=== PATIENT | female | born 1950 | race Two or more races ===

== ENCOUNTER 2016-08-20 12:02 | Emergency (ER) | payer SELFPAY ==
[~2016-08-20] VITALS: Ht 157.5 cm; Wt 54.4 kg
[2016-08-20] MEDS ORDERED: FENTANYL PF 100 MCG/2 ML VIAL. IV PRN (12:30)
--- NOTE | 2016-08-20 12:33 | EKG ---
[facility] [address] [place] [address] Test Date: 2016-08-20 Test Time: 12:18:32 Pat Name: HAILE WARREN Department: Room: Gender: F Appraisal Manager: : 1950 Requested By: BOBO CORONA Order Number: [id number] Reading MD: Alice Garza Measurements Intervals [place] Rate: 79 P: 11 CO: 140 QRS: 26 QRSD: 74 T: 4 QT: 448 QTc: 515 Interpretive Statements SINUS RHYTHM T ABNORMALITY IN HIGH LATERAL LEADS INFERIOR LEADS PROLONGED QT ABNORMAL ECG RI6.01 No previous ECG available for comparison Electronically Signed On 08-24-2016 23:08:25 TREE INSPECTOR by Alice Garza
--- NOTE | 2016-08-20 13:07 | ED.ADGEN ---
Adult General Chief Complaint Chief Complaint: CHEST PAIN HPI HPI Patient is a 65 year old woman, with history of hypertension, hyperlipidemia, arthritis, who presents emergency department stating that she ran out of her medications 4 days ago, and has been experiencing headache since that time which she states is associated with when her pressure is high. Patient is primarily Syriac-speaking, and translation is obtained via the [employer] line skate boarder. Patient moved from [place] to [place] 3 months ago and plans on staying here permanently, she does not currently have a physician, and ran out of her medications, was previously taking them as directed. She states that she took a blood pressure pill from a friend had earlier today, at this point she states that she feels slightly tired but is denying any chest pain or shortness of breath, any blurry vision, any weakness emesis or tingling, and is complaining of a mild posterior headache. She states she's had these symptoms previously when her blood pressure is high. Patient's blood pressure currently is 148/78. Heart rate is 86. Initially denied any shortness of breath or chest pain, however during a lengthy conversation with the language line skate boarder, patient states that she had some chest tightness that occurred 2 days ago, lasting for a few moments without radiation or associated symptoms, and she states she does have some shortness of breath with activity at times. No chest pain currently. She is not previously had a cardiac evaluation. She does not currently have a primary care provider with whom she was planning to follow up. Patient states that she is primarily here because she ran out of her medications. Review of Systems Review of Systems Constitutional: Denies fever or chills. [] Eyes: Denies change in visual acuity. [] HENT: Denies nasal congestion or sore throat. [] Respiratory: No cough or shortness of breath. Cardiovascular: Chest tightness that lasted for a few moments 2 days ago. No edema. GI: Denies abdominal pain, nausea, vomiting, bloody stools or diarrhea. [] : Denies dysuria. [] Musculoskeletal: Denies back pain or joint pain. [] Integument: Denies rash. [] Neurologic: Denies focal weakness or sensory changes. Posterior headache, with bilateral blurry vision, currently no blurry vision, very mild headache. [ ] Endocrine: Denies polyuria or polydipsia. [] Lymphatic: Denies swollen glands. [] Psychiatric: Denies depression or anxiety. [] Current Medications Current Medications Current Medications Medications (Trade) Dose Ordered Sig/[place] Start Time Stop Time Status Last Admin Dose Admin Fentanyl Citrate (Fentanyl 2ml Vial) 25 mcg PRN Q15MIN PRN 08/20/16 12:30 08/20/16 14:22 DC Allergies Allergies Allergies Coded Allergies Type Severity Reaction Last Updated Verified No Known Drug Allergies 08/20/16 No Physical Exam Physical Exam Constitutional: Well developed, well nourished, no acute distress, non-toxic appearance. [] HENT: Normocephalic, atraumatic, bilateral external ears normal, oropharynx moist, no oral exudates, nose normal. [] Eyes: PERRLA, EOMI, conjunctiva normal, no discharge. [] Neck: Normal range of motion, no tenderness, supple, no stridor. [] Cardiovascular:Heart rate regular rhythm, no murmur , S1, S2, rubs gallops. [] Lungs & Thorax: Bilateral breath sounds clear to auscultation, no wheezing, rhonchi, rales. No chest tenderness or crepitus. [] Abdomen: Bowel sounds normal, soft, no tenderness, no masses, no pulsatile masses. [] Skin: Warm, dry, no erythema, no rash. [] Back: No tenderness, no CVA tenderness. [] Extremities: No tenderness, no cyanosis, no clubbing, ROM intact, no edema. Negative Homans sign. [] Neurologic: Alert and oriented X 3, normal motor function, normal sensory function, no focal deficits noted. [] Psychologic: Affect normal, judgement normal, mood normal. [] Current Patient Data Vital Signs Vital Signs Date Time Temp Pulse Resp B/P Pulse Ox O2 Delivery O2 Flow Rate FiO2 08/20/16 14:15 68 22 119/59 95 Room Air 08/20/16 12:30 97.6 97.6 Lab Values Laboratory Tests Test 08/20/16 13:00 08/20/16 13:10 Urine Collection Type Unknown Urine Color Yellow Urine Clarity Clear Urine pH 6.5 Urine Specific [place] <=1.005 Urine Protein Negativemg/dL (NEG-TRACE) Urine Glucose (UA) Negativemg/dL (NEG) Urine Ketones (Stick) Negativemg/dL (NEG) Urine Blood Negative (NEG) Urine Nitrite Negative (NEG) Urine Bilirubin Negative (NEG) Urine Urobilinogen Dipstick 0.2mg/dL (0.2 mg/dL) Urine Leukocyte Esterase Trace (NEG) Urine RBC 0/HPF (0-2) Urine WBC 1-4/HPF (0-4) Urine Squamous Epithelial Cells Few/LPF Urine Bacteria Moderate/HPF (0-FEW) Urine Opiates Screen Neg (NEG) Urine Methadone Screen Neg (NEG) Urine Barbiturates Neg (NEG) Urine Phencyclidine Screen Neg (NEG) Urine Amphetamine/Methamphetamine Neg (NEG) Urine Benzodiazepines Screen Neg (NEG) Urine Cocaine Screen Neg (NEG) Urine Cannabinoids Screen Neg (NEG) Urine Ethyl Alcohol Neg (NEG) White Blood Count 6.3x10^3/uL (4.0-11.0) Red Blood Count 4.84x10^6/uL (3.50-5.40) Hemoglobin 14.1g/dL (12.0-15.5) Hematocrit 43.7% (36.0-47.0) Mean Corpuscular Volume 90fL (79-100) Mean Corpuscular Hemoglobin 29pg (25-35) Mean Corpuscular Hemoglobin Concent 32g/dL (31-37) Red Cell Distribution Width 13.5% (11.5-14.5) Platelet Count 193x10^3/uL (140-400) Neutrophils (%) (Auto) 58% (31-73) Lymphocytes (%) (Auto) 32% (24-48) Monocytes (%) (Auto) 7% (0-9) Eosinophils (%) (Auto) 2% (0-3) Basophils (%) (Auto) 1% (0-3) Neutrophils # (Auto) 3.6x10^3uL (1.8-7.7) Lymphocytes # (Auto) 2.0x10^3/uL (1.0-4.8) Monocytes # (Auto) 0.4x10^3/uL (0.0-1.1) Eosinophils # (Auto) 0.1x10^3/uL (0.0-0.7) Basophils # (Auto) 0.0x10^3/uL (0.0-0.2) Prothrombin Time 11.6SEC (11.7-14.0) L Prothrombin Time INR 0.9 (0.8-1.1) PTT 27SEC (24-38) Sodium Level 139mmol/L (136-145) Potassium Level 3.9mmol/L (3.5-5.1) Chloride Level 103mmol/L (98-107) Carbon Dioxide Level 26mmol/L (21-32) Anion Gap 10 (6-14) Blood Urea Nitrogen 17mg/dL (7-20) Creatinine 0.8mg/dL (0.6-1.0) Estimated GFR (Cockcroft-Gault) 71.8 Glucose Level 128mg/dL (70-99) H Calcium Level 9.0mg/dL (8.5-10.1) Troponin I Quantitative < 0.017ng/mL (0.000-0.055) NV-Iit-B-Type Natriuretic Peptide 55pg/mL (0-124) Lipase 313U/L (73-393) Laboratory Tests 08/20/16 13:10 Laboratory Tests 08/20/16 13:10 EKG EKG EC: Sinus rhythm, heart rate 79 bpm, moderate baseline artifact, QTC of 5 :15, NM of 140, QRS is 74, contour abnormalities noted in the inferior and lateral leads, limited secondary to baseline artifact. Does not meet STEMI criteria. As read by me. [] Radiology/Procedures Radiology/Procedures [] [facility] [address] [place] [address] IMAGING REPORT Signed PATIENT: HAILE WARREN ACCOUNT: [id number] : 1950 LOCATION: ER AGE: 65 SEX: F EXAM STATUS: REG ER ORD. PHYSICIAN: BOBO CORONA DO REASON: CP PROCEDURE: PORTABLE CHEST 1V AP chest. History: Chest pain AP view was taken of the chest. Lungs are clear. Heart is normal in size. There is no pleural effusion. There is mild arthritis in the shoulders. Impression: 1. No acute chest disease. DICTATED and SIGNED BY: RAFA TRIANA MD DATE: 08/20/16 1336 CC: BOBO CORONA DO; NO PCP ~ Course & Med Decision Making Course & Med Decision Making Pertinent Labs and Imaging studies reviewed. (See chart for details) Patient well-appearing, with a normal neurologic and cardiac examination. Blood pressure is 130s to 140s over 70s to 80s, heart rate is in the 70s to 80s. Discussed with patient and daughter wanted bedside that we are happy to see the patient for any emergent conditions, but it appears today that she is primarily here for medication refill, discussed with her that her blood pressure currently is not within a dangerous level, although it is slightly elevated, discussed that it is dangerous and appropriate for her to be using other people' s medications, and that there could be serious side effects. Laboratory studies are unremarkable, and reevaluation she is resting comfortably, I did write prescriptions for 2 weeks worth of the patient's home medications, including losartan and amlodipine, patient was given contact information for area providers in order to establish a primary care provider, and importance of establishing a primary care provider was again emphasized. Patient voiced understanding ROM ede was discharged home in stable condition with her first [id number] with plan as above. Dragon Disclaimer Dragon Disclaimer This electronic medical record was generated, in whole or in part, using a voice recognition dictation system. Departure Impression: Primary Impression: Noncompliance with medication regimen Additional Impression: Hypertension Disposition: HOME, SELF-CARE Condition: STABLE Scripts Pravastatin Sodium 10 Mg Tablet1 Tab PO DAILY #14 TAB Ref 0 Prov:BOBO CORONA DO 08/20/16 Losartan Potassium 50 Mg [id number] Mg PO DAILY #14 TAB Prov:BOBO CORONA DO 08/20/16 Amlodipine Besylate 5 Mg Tablet5 Mg PO BID #30 TAB Prov:BOBO CORONA DO 08/20/16 Problem Qualifiers Additional Impression: Hypertension Hypertension type: unspecified secondary hypertension Qualified Code: I15.9 - Secondary hypertension, unspecified BOBO CORONA DO Aug 20, 2016 13:07
[2016-08-20] MEDS ORDERED: PRAV10TA2 PO ×2 (13:14→14:03)
[2016-08-20] MEDS ORDERED: ACET500T68 PO (13:14)
[2016-08-20] MEDS ORDERED: AMLO5TAB2 PO ×2 (13:14→14:03)
[2016-08-20] MEDS ORDERED: CHLO50TA PO (13:14)
[2016-08-20] MEDS ORDERED: LOSA50TA6 PO ×2 (13:14→14:03)
[2016-08-20 13:18] LABS: BILIRUBIN,URINE NEGATIVE (NEG); GLUCOSE,URINE NEGATIVE (NEG); NITRITE,URINE NEGATIVE (NEG); PH,URINE 6.5; PROTEIN,URINE NEGATIVE (NEG-TRACE); UROBILINOGEN,URINE 0.2 mg/dL (0.2 mg/dL)
[2016-08-20 13:27] LABS: BASO % 1 % (0-3); EOS % 2 % (0-3); HEMATOCRIT 43.7 % (36.0-47.0); HEMOGLOBIN 14.1 g/dL (12.0-15.5); LYMPH % 32 % (24-48); MEAN CORPUSCULAR HEMOGLOBIN 29 pg (25-35); MEAN CORPUSCULAR HGB CONC 32 g/dL (31-37); MEAN CORPUSCULAR VOLUME 90 fL (79-100); MONO % 7 % (0-9); NEUT % 58 % (31-73); PLATELET COUNT 193 x10^3/uL (140-400); RED BLOOD COUNT 4.84 x10^6/uL (3.50-5.40); RED CELL DISTRIBUTION WIDTH 13.5 % (11.5-14.5); WHITE BLOOD COUNT 6.3 x10^3/uL (4.0-11.0)
[2016-08-20 13:35] LABS: INR 0.9 (0.8-1.1); PROTHROMBIN TIME PATIENT 11.6 SEC (11.7-14.0)
[2016-08-20 13:36] LABS: CREATININE 0.8 mg/dL (0.6-1.0); GFR 71.8; POTASSIUM 3.9 mmol/L (3.5-5.1)
[2016-08-20 13:37] LABS: BACTERIA,URINE MODERATE /HPF (0-FEW); RBC,URINE 0 /HPF (0-2); SQUAMOUS EPITHELIAL CELL,UR FEW /LPF
[2016-08-20 13:38] LABS: BARBITURATES NEG (NEG); BENZODIAZEPINES NEG (NEG); CANNABINOIDS NEG (NEG); COCAINE NEG (NEG); METHADONE NEG (NEG); OPIATES NEG (NEG); PHENCYCLIDINE NEG (NEG)
--- NOTE | 2016-08-20 13:38 | RAD ---
AP chest. History: Chest pain AP view was taken of the chest. Lungs are clear. Heart is normal in size. There is no pleural effusion. There is mild arthritis in the shoulders. Impression: 1. No acute chest disease.
[2016-08-20 13:40] LABS: ETHANOL, URINE NEG (NEG)
[2016-08-20 14:15] VITALS: BP 119/59
--- NOTE | 2016-08-23 17:47 | VNOTE ---
CALL BACK NOTE CALL BACK Microbiology 08/20/16 Urine Culture - Final, Complete 08/20/16 Urine Culture Result 1 (FADUMO) - Final, Complete 08/20/16 Antimicrobic Susceptibility - Final, Complete Patient's urine culture returned positive for greater than 100 CFU per mL of Escherichia coli. I contacted the patient to make her aware. She uses the [facility] pharmacy on [address]. She is not allergic to any medications. Prescription for Cipro 500 mg by mouth twice a day 7 days was called to the pharmacy. BOBO KILLIAN Aug 23, 2016 17:47
== END 2016-08-20 14:15 | disposition home or self-care (01) ==
LOC: ER 12:02
DX: Z91.14 Patient's other noncompliance with medication regimen (principal); I15.9 Secondary hypertension, unspecified; E78.5 Hyperlipidemia, unspecified; M19.90 Unspecified osteoarthritis, unspecified site
CPT/HCPCS: 36415; 71010; 80048; 81001; 83690; 83880; 84484; 85027; 85610; 85730; 87086; 93005; 99285; G0481; 87186